=== PATIENT | male | born 1965 | race African-American/Black ===

== ENCOUNTER 2019-11-08 18:29 | Emergency (ER) | payer BC ==
[~2019-11-08] VITALS: Ht 193 cm; Wt 98.0 kg
[2019-11-08] MEDS ORDERED: IPRATROPIUM BROMIDE (0.02%) 0.5MG/2.5ML NEB HHN STA (20:14)
[2019-11-08] MEDS ORDERED: PREDNISONE 20MG TABLET PO STA (20:14)
[2019-11-08] MEDS ORDERED: ALBUTEROL (0.083%) 2.5MG/3ML NEB HHN STA (20:14)
[2019-11-08 20:23] VITALS: BP 103/60
== END 2019-11-08 22:15 | disposition home or self-care (01) ==
LOC: ER 18:29
DX: J40 Bronchitis, not specified as acute or chronic (principal); R03.0 Elevated blood-pressure reading, without diagnosis of hypertension
CPT/HCPCS: 71045; 99283; J7512